=== PATIENT | male | born 1970 | race Caucasian/White ===

== ENCOUNTER → 2025-04-20 12:53 | Outpatient (REF) | payer OTHER, SELFPAY | LOC: HWRAD 12:53 | PROVIDERS: ATTENDING PHYSICIAN Family Medicine | DX: R10.20 Pelvic and perineal pain unspecified side (principal); R39.9 Unspecified symptoms and signs involving the genitourinary system; R35.0 Frequency of micturition; R39.15 Urgency of urination | CPT/HCPCS: 76770 ==